=== PATIENT | male | born 1975 | race Caucasian/White ===

== ENCOUNTER 2019-03-15 07:42 | Day surgery (SDC) | payer BC ==
[2019-03-11 15:10] LABS: BASOPHILS % (AUTO) 0.6 % (0-1); EOSINOPHILS % (AUTO) 0.6 % (0-6); LYMPHOCYTES % (AUTO) 26.6 % (21-51); MEAN CORPUSCULAR HEMOGLOBIN 32.8 PG (27.0-31.0); MEAN CORPUSCULAR HGB CONC 34.2 g/dL (33.0-36.5); MEAN CORPUSCULAR VOLUME 95.9 FL (78-98); MEAN PLATELET VOLUME 9.3 FL (7.4-10.4); MONOCYTES # (AUTO) 0.7 X10'3 (0-0.9); MONOCYTES % (AUTO) 9.1 % (2-12); NEUTROPHILS # (AUTO) 4.7 X10'3 (1.8-7.7); NEUTROPHILS % (AUTO) 63.1 % (42-75); PRE OP HEMATOCRIT 47.2 % (42.0-52.0); PRE OP HEMOGLOBIN 16.2 g/dL (14.0-17.9); PRE OP PLATELET COUNT 190 X10'3 (140-440); RED BLOOD COUNT 4.92 X10'6 (4.70-6.10)
[2019-03-11 15:25] LABS: ALBUMIN 4.3 G/DL (3.4-5.0); ALBUMIN/GLOBULIN RATIO 1.3 (1.1-1.5); ALKALINE PHOSPHATASE 70 IU/L (46-116); BLOOD UREA NITROGEN 22 MG/DL (7-18); BUN/CREATININE RATIO 22.4 (5.4-32.0); CHLORIDE 105 MMOL/L (99-107); CREATININE 0.98 MG/DL (0.60-1.10); PRE OP ANION GAP 9 (8-16); PRE OP AST 52 U/L (10-37); PRE OP BILIRUB, TOTAL 0.9 MG/DL (0.0-1.0); PRE OP GLUCOSE 120 MG/DL (70-104); PRE OP SODIUM 141 MMOL/L (135-145); TOTAL CARBON DIOXIDE 27.4 MMOL/L (24-32); TOTAL PROTEIN 7.6 G/DL (6.4-8.2); eGFR 84 ML/MIN
[2019-03-11 15:42] LABS: PRE OP ALT 99 U/L (30-65)
[~2019-03-15] VITALS: Ht 185.4 cm; Wt 133.8 kg
[~2019-03-15 07:42] MED LIST: BUPIVAcaine/PF 2.5mg/ml (0.25%) 10ml vial ONE; LIDOcaine 0.5% (5mg/ml) 50ml vial ONE; LISI1TAB29 PO
[2019-03-15 07:49] VITALS: BP 142/84
[2019-03-15] MEDS ORDERED: famotidine 20mg tablet PO ONE (08:30)
[2019-03-15] MEDS ORDERED: cefazolin/dext.iso 2gm/100 ML IV ONE (08:30)
[2019-03-15] MEDS ORDERED: ringers solution, lacted 1,000 ML IV SCH ×2 (08:30→08:50)
[2019-03-15] MEDS ORDERED: morphine 4 MG/ML inj SYRINge IV PRN ×2 (08:50)
[2019-03-15] MEDS ORDERED: ondansetron/PF 4mg/2ml inj IV PRN (08:50)
[2019-03-15] MEDS ORDERED: proCHLORperazine 10 MG/2 ml inj IV PRN (08:50)
[2019-03-15] MEDS ORDERED: meperidine/PF 25mg/ml syringe IV PRN ×3 (08:50)
[2019-03-15] MEDS ORDERED: midazolam 2 mg/2 ml injection ONE (09:51)
[2019-03-15] MEDS ORDERED: fentaNYL/PF 50MCG/1 ML 2ML syringe ONE (09:51)
[2019-03-15 10:15] VITALS: BP 157/94
--- NOTE | 2019-03-15 10:15 | NUR ---
Received from OR via bed, accompanied by Anesthesiologist. Report received. Initial physical assessment done and recorded.
[2019-03-15 10:25] VITALS: BP 154/89
[2019-03-15 10:35] VITALS: BP 140/82
[2019-03-15 10:45] VITALS: BP 133/79
--- NOTE | 2019-03-15 11:00 | NUR ---
Discharged home in good condition. No complaints of pain during post op period, no pain meds given no complaints Discharge criteria met, discharge instructions given, demonstrates verbal understanding.
== END 2019-03-15 11:00 | disposition home or self-care (01) ==
LOC: PAS 07:42
PROVIDERS: ATTEND Orthopaedic Surgery Hand Surgery
DX: G56.01 Carpal tunnel syndrome, right upper limb (principal); E66.9 Obesity, unspecified; G47.30 Sleep apnea, unspecified; Z68.41 Body mass index [BMI] 40.0-44.9, adult; I10 Essential (primary) hypertension; Z79.899 Other long term (current) drug therapy; Z87.891 Personal history of nicotine dependence; Z72.89 Other problems related to lifestyle
CPT/HCPCS: 29848; 36415; 80053; 82948; 85025; 93005; J2001; J2250; J3010; J3490; A4215; J7120